=== PATIENT | female | born 1990 | race Caucasian/White ===

== ENCOUNTER 2019-05-13 13:53 | Emergency (ER) | payer BC ==
[~2019-05-13] VITALS: Ht 157.5 cm; Wt 37.2 kg
[2019-05-13] MEDS ORDERED: ONDANSETRON HCL4 M2 PO ×2 (15:52→18:26)
[2019-05-13] MEDS ORDERED: PROMETH-CODEIN 65 ML PO ×2 (15:52→18:26)
[2019-05-13 17:02] LABS: ABSOLUTE NEUTROPHILS 7.2 thou/uL (1.4-8.2); BASOPHILS 0.2 % (0.0-2.0); HEMATOCRIT 38.9 % (37.0-47.0); HEMOGLOBIN 12.9 gm/dL (12.0-15.0); LYMPHOCYTES 5.5 % (24.0-44.0); MCH 30.9 pg (26.0-34.0); MCHC 33.2 g/dL (28.0-37.0); MCV 93.3 fL (80.0-100.0); MONOCYTES 5.6 % (1.0-8.0); PLATELET COUNT 233 thou/uL (150-400); POLYS 88.7 % (36.0-66.0); RBC 4.17 mil/uL (4.20-5.00); WBC 8.1 thou/uL (4.0-11.0)
[2019-05-13 17:11] LABS: CALCIUM 8.7 mg/dL (8.5-10.1); CREATININE 0.7 mg/dL (0.6-1.0); POTASSIUM 3.8 mmol/L (3.5-5.1)
[2019-05-13 17:16] LABS: ALBUMIN 4.5 g/dL (3.4-5.0); TOTAL BILIRUBIN 0.5 mg/dL (<0.1-1.0); TOTAL PROTEIN 8.4 g/dL (6.4-8.2)
[2019-05-13 18:28] VITALS: BP 86/53
== END 2019-05-13 18:41 | disposition home or self-care (01) ==
LOC: ER 13:53
PROVIDERS: Physician Assistant
DX: B34.9 Viral infection, unspecified (principal); R11.2 Nausea with vomiting, unspecified; F32.9 Major depressive disorder, single episode, unspecified; F41.9 Anxiety disorder, unspecified

== ENCOUNTER 2020-09-26 11:28 | Emergency (ER) | payer OTHER ==
[~2020-09-26] VITALS: Ht 157.5 cm; Wt 40.8 kg
[~2020-09-26 11:28] MED LIST: KEFLEX250 MG PO; ONDANSETRON HCL4 M2 PO; PROMETH-CODEIN 65 ML PO; ZOFRAN ODT4 MG PO
[2020-09-26 11:40] VITALS: BP 115/77
[2020-09-26] MEDS ORDERED: TESSALON PERLE100 MG PO ×2 (11:54→12:15)
== END 2020-09-26 12:16 | disposition home or self-care (01) ==
LOC: ER 11:28
DX: J06.9 Acute upper respiratory infection, unspecified (principal); F32.9 Major depressive disorder, single episode, unspecified; F41.9 Anxiety disorder, unspecified; F19.90 Other psychoactive substance use, unspecified, uncomplicated; Z79.2 Long term (current) use of antibiotics; Z79.899 Other long term (current) drug therapy

== ENCOUNTER 2021-02-11 17:46 | Emergency (ER) | payer OTHER ==
[~2021-02-11] VITALS: Ht 157.5 cm; Wt 38.6 kg
[~2021-02-11 17:46] MED LIST changes: +TESSALON PERLE100 MG PO
[2021-02-11 17:53] VITALS: BP 144/72
[2021-02-11 18:00] LABS: URINE BILIRUBIN NEGATIVE (Negative); URINE BLOOD 3+ (Negative); URINE COLOR YELLOW; URINE GLUCOSE-RANDOM* NEGATIVE (Negative); URINE KETONES 2+ (Negative); URINE NITRITE-REFLEX NEGATIVE (Negative); URINE PROTEIN (DIPSTICK) TRACE (Negative); URINE SPECIFIC GRAVITY >= 1.030 (1.005-1.035); URINE UROBILINOGEN 0.2 E.U./dl (0.2-1.0)
[2021-02-11 18:05] LABS: URINE CLARITY HAZY; URINE LEUKOCYTES-REFLEX 2+ (Negative)
[2021-02-11 18:20] LABS: BACTERIA-REFLEX 1-9 Few /HPF (None Seen); CASTS None Seen /LPF (None Seen); CRYSTALS None Seen /LPF (None Seen); SQUAMOUS 0-3 Few /LPF (0-3); URINE RBC 3-10 Few /HPF (NONE SEEN)
[2021-02-11] MEDS ORDERED: CEPHALEXIN500 MG PO (18:40)
== END 2021-02-11 18:47 | disposition home or self-care (01) ==
LOC: ER 17:46
PROVIDERS: Emergency Medicine
DX: N39.0 Urinary tract infection, site not specified (principal); F41.9 Anxiety disorder, unspecified; F32.9 Major depressive disorder, single episode, unspecified; F12.90 Cannabis use, unspecified, uncomplicated; Z79.891 Long term (current) use of opiate analgesic; Z79.899 Other long term (current) drug therapy